=== PATIENT | female | born 1985 | race Caucasian/White ===

== ENCOUNTER 2025-01-30 17:02 | Emergency (ER) | payer OTHER, SELFPAY ==
[2025-01-30 17:06] VITALS: BP 113/62
[2025-01-30 17:15] VITALS: BP 113/62; BMI 38.2
--- NOTE | 2025-01-30 17:27 | ED.GENMED ---
History of Present Illness
General
Chief Complaint: Fainting Sensation
Time Seen by Provider: 01/30/25 17:09
History of Present Illness
History of Present Illness:
Patient is a 39-year-old woman with no past medical history presenting to the emergency department with a near syncopal event. Patient states that she was at a private parade today and did not drink enough water. She states that she did have much
more coffee and juices compared to water. She states that she was talking about blood with her and friend. Usually that does not grocer out but today she noted she was getting a little lightheaded dizzy nauseous talking about it. She then
stood up and became more lightheaded dizzy and almost passed out. Her and friend laid her to the ground. She did not pass out. She did not hit her head. Medics were called and she did have positive orthostatic vital signs. They did give
her fluids. Her Accu-Chek was normal. Patient states that this time she feels slightly tired denies any chest pain shortness of breath palpitations leg swelling. Her last period was about 3 weeks ago. No history of syncope.
Phy Exam
Physical Exam
Physical Exam:
GENERAL: in no acute distress
HEENT: normocephalic, extraocular movements intact, dry oral mucosa
NECK: normal inspection
RESPIRATORY: no respiratory distress, clear to auscultation bilaterally
CARDIOVASCULAR: regular rate and rhythm
ABDOMEN/: soft, non-distended, non-tender to palpation, no rebound or guarding
EXTREMITIES: non-tender, no edema/swelling
NEUROLOGIC: awake and alert, moves all extremities
SKIN: warm
Course
Orders/Labs/Results
Orders:
Orders
01/30/25 17:21
Electrocardiogram (*1) Urgent
Reason for Study: Fatigue / Weakness
01/30/25 17:22
EKG- Treatment ONCE
Test Result ONCE
01/30/25 17:24
Beta Hcg Serum Qualitative Screen [HCG, Serum Qualitative Screen] Urgent
Complete Blood Count/No Diff Urgent
Comprehensive Metabolic Panel Urgent
Abnormal Lab Results
01/30/25
17:24
RBC 4.10 L 10^6/uL
(4.20-5.40)
Hgb 11.6 L g/dL
(12.0-16.0)
Hct 34.4 L %
(37.0-47.0)
Chloride 111 H mmol/L
(98-107)
Carbon Dioxide 19 L mmol/L
(22-30)
Glucose 100 H mg/dl
(70-99)
01/30/25 17:24
01/30/25 17:24
Vital Signs
Initial and Last Documented VS:
Initial Vital Signs
Pulse Resp
87 23
01/30/25 17:05 01/30/25 17:05
Last Documented Vital Signs
Temp Pulse Resp BP Pulse Ox
97.7 F 75 23 120/69 98
01/30/25 17:15 01/30/25 19:30 01/30/25 19:30 01/30/25 19:02 01/30/25 19:30
MDM/Problems Addressed
Differential Diagnosis Includes:
Patient is a 39-year-old woman presenting to the emergency department with a near syncopal event. Vitals are notable for blood pressure 113/62 and exam does show dry oral mucosa. Likely component of vasovagal versus orthostatic syncope. History
and exam not consistent with seizures or intracranial hemorrhage given no trauma or headache or cardiac etiology. Given no chest pain shortness of breath less likely to be ACS or PE. Will obtain EKG basic blood work. Will give additional p.o.
fluids and ambulate patient.
*Critical Care Note
Total Time (30-74mins, 75-104mins- exclusive of procedures): Not Applicable
Update Note
Update Note:
On reevaluation patient ambulatory without any symptoms. Blood work reassuring. EKG per my interpretation normal sinus rhythm. Patient advised to stay hydrated. Will discharge at this time with strict return precautions
ED Attending Note
-
Portions of this chart may have been created with voice recognition software.� Occasional wrong word or��sound alike� substitutions may have occurred due to the inherent limitations of voice recognition software.
Discharge Plan
Departure
Patient Disposition: Home (Routine Discharge)
Date of Disposition: 01/30/25
Time of Disposition: 20:08
Patient with high blood pressure during this ER visit?: No
Discharge Problem:
Near syncope, Orthostatic lightheadedness, Vaso vagal episode
Instructions: Near Fainting (DC)
Referrals:
Summer Onofre DO [Family Provider] -
Interventions
Interventions:
*Risk Screen - Suicide Last Done: 01/30/25 17:15
*General Assessment Last Done: 01/30/25 17:15
*Neglect/Abuse Screening Last Done: 01/30/25 17:15
*ED- Fall Risk Assessment Last Done: 01/30/25 17:15
*ED COVID-19 Vaccine History Last Done: 01/30/25 17:15
ED- Cardiac Assessment Last Done: 01/30/25 18:00
Discharge Date and Time
Print Language: ARABIC
[2025-01-30 17:30] LABS: Hematocrit 34.4 % (37.0-47.0); Hemoglobin 11.6 g/dL (12.0-16.0); Mean Corp Hgb Conc. 33.7 g/dL (33.0-37.0); Mean Corpuscular Hgb 28.3 pg (27.0-31.0); Mean Corpuscular Volume 83.9 fL (81.0-99.0); Mean Platelet Volume 9.6 fL (7.4-10.4); Platelet Count 316 10^3/uL (130-400); Red Cell Dist. Width 13.4 % (11.5-14.5); White Blood Cell Count 7.8 10^3/uL (4.8-10.8)
[2025-01-30 17:44] LABS: HCG, Serum Qualitative Screen Negative
[2025-01-30 17:51] LABS: ALT (SGPT) 26 U/L (0-35); AST (SGOT) 25 U/L (14-36); Albumin 4.2 g/dl (3.5-5.0); Alkaline Phosphatase 47 U/L (38-126); Blood Urea Nitrogen 12 mg/dl (7-17); Calcium 8.9 mg/dl (8.4-10.2); Carbon Dioxide 19 mmol/L (22-30); Chloride 111 mmol/L (98-107); Estimated Creatinine Clearance > 125 ml/min; Glucose 100 mg/dl (70-99); Potassium 4.2 mmol/L (3.5-5.1); Sodium 138 mmol/L (135-145); Total Bilirubin 0.6 mg/dl (0.2-1.3); Total Protein 6.8 g/dl (6.3-8.2); eGFR > 60.00
[2025-01-30 18:00] VITALS: BP 108/56
[2025-01-30 19:02] VITALS: BP 120/69
== END 2025-01-30 20:30 | disposition home or self-care (01) ==
LOC: EMR 17:02
PROVIDERS: EMERGENCY PHYSICIAN Student in an Organized Health Care Education/Training Program; FAMILY PHYSICIAN Family Medicine
DX: R55 Syncope and collapse (principal); R42 Dizziness and giddiness
CPT/HCPCS: 99284; 80053; 84703; 85027; 93005